=== PATIENT | male | born 1980 | race African-American/Black ===

== ENCOUNTER 2018-12-02 15:33 | Emergency (ER) | payer OTHER ==
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
== END 2018-12-02 16:01 | disposition home or self-care (01) ==
LOC: MW.ED 15:33
DX: S00.03XA Contusion of scalp, initial encounter (principal); S50.812A Abrasion of left forearm, initial encounter; S50.811A Abrasion of right forearm, initial encounter; S80.212A Abrasion, left knee, initial encounter; S80.211A Abrasion, right knee, initial encounter; V57.5XXA Driver of pick-up truck or van injured in collision with fixed or stationary object in traffic accident, initial encounter
CPT/HCPCS: 99283